=== PATIENT | male | born 1950 | race Caucasian/White ===

== ENCOUNTER 2023-02-01 06:11 | Day surgery (SDC) | payer MEDICARE, SELFPAY ==
[2023-02-01] MEDS: TETRACAINE 0.5% OPHTH 1 DROP EYE-RIGHT ×2 (06:55→07:08)
[2023-02-01 07:04] VITALS: BMI 32.3
[2023-02-01] MEDS: KETOROLAC OPHTH 0.5% 1 DROP EYE-RIGHT ×3 (07:05→07:19)
--- NOTE | 2023-02-01 07:09 | SUR.PREOP ---
The eye drops brought by the patient (Ketorolac and Prednisolone) are examined and I have determined they are labeled by the patient's pharmacy for this patient as prescribed by the surgeon. The bottles are intact, recently obtained and appear to be correct.
[2023-02-01 07:12] VITALS: BP 163/79; PULSE 76; RESP 20; TEMP 36.7; O2SAT 97
[2023-02-01] MEDS: SODIUM CHLORIDE 0.9 % (FLUSH) 10 ML SYRINGE IVF (07:26)
--- NOTE | 2023-02-01 07:45 | W.ANESCHARGE ---
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
[2023-02-01] MEDS: TETRACAINE 0.5% OPHTH 2 DROP EYE-RIGHT (08:35)
--- NOTE | 2023-02-01 08:41 | W.ANESCHARGE ---
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
[2023-02-01] MEDS: BALANCED SALT IRRIG SOLN 15 ML EYE-RIGHT (08:42)
[2023-02-01 09:15] VITALS: BP 145/82; PULSE 73; RESP 16; TEMP 36.1; O2SAT 95
--- NOTE | 2023-02-01 12:55 | W.PM.OPTPROC ---
Procedure Note Date of procedure: 02/01/23 Will [facility] bill your pro fee for this procedure?: Yes Procedure Description: SURGEON: Myranda Giron MD PREOPERATIVE DIAGNOSIS: Nuclear sclerotic cataract, right eye. POSTOPERATIVE DIAGNOSIS: Nuclear sclerotic cataract, right eye. NAME OF OPERATION: Phacoemulsification of cataract with posterior chamber intraocular lens implantation in the right eye. ANESTHESIA: Topical. ESTIMATED BLOOD LOSS: Less than 2 cc. COMPLICATIONS: None. PATHOLOGY SPECIMEN: None. INDICATIONS: See consult note for details. The risks, benefits and alternatives of the procedure were explained to the patient, who elected to proceed and signed informed consent to do so. PROCEDURE: The patient was brought to the pre-holding area where the right eye was identified as the operative eye. I placed my initials above this eye. The patient received eye drops consisting of 0.5% tetracaine, 1% tropicamide, 10% phenylephrine, and 0.5% ketorolac. The patient was then brought to the operating room where the right eye was again identified as the operative eye. The eye was prepped with Betadine and draped in the usual sterile ophthalmic fashion. A #15 super-sharp blade was used to create a paracentesis site. 1% non-preserved intracameral lidocaine was injected into the anterior chamber. Endocoat was injected into the anterior chamber. A 2.4 mm keratome was used to create a three-plane self-sealing incision 1 mm anterior to the temporal limbus. A cystotome was used to create an anterior capsular leaflet. The Utrata forceps were used to extend this to form a continuous curvilinear capsulorrhexis. Hydrodissection was performed. The cataract was removed with phacoemulsification using the [id number] technique. The irrigation and aspiration tip was used to remove the remaining cortex. Healon was injected into the capsular bag. An SUMIT ZCB00 intraocular lens of 18.0 diopters was injected into the capsular bag. The irrigation and aspiration tip was used to remove the remaining viscoelastic. Balanced salt solution on a cannula was used to hydrate the wound, and the wound was found to be watertight. The pupil was noted to be round. DISPOSITION: The patient was taken to the recovery room and discharged to home in stable condition. The patient was instructed to call me or go to the emergency department with any sudden change, including dramatic loss of vision, severe pain in the eye or eyebrow region, nausea, or vomiting. The patient will follow up in the clinic tomorrow morning. Surgeon: Myranda Giron MD
== END 2023-02-01 09:40 | disposition home or self-care (01) ==
PROVIDERS: PCP Family Medicine; Visit Provider Ophthalmology
PROC: (CPT 66982; principal; 2023-02-01 06:45)
DX: H25.11 Age-related nuclear cataract, right eye (principal); H57.03 Miosis
CPT/HCPCS: 66982; 00142; 82962; 99100; A9270; J2250; J3010; V2632

== ENCOUNTER 2023-02-22 06:32 | Day surgery (SDC) | payer MEDICARE, SELFPAY ==
[2023-02-22] MEDS: TETRACAINE 0.5% OPHTH 1 DROP EYE-LEFT ×2 (07:04→07:10)
[2023-02-22] MEDS: SODIUM CHLORIDE 0.9 % (FLUSH) 10 ML SYRINGE IVF (07:05)
[2023-02-22] MEDS: KETOROLAC OPHTH 0.5% 1 DROP EYE-LEFT ×3 (07:10→07:20)
[2023-02-22 07:13] VITALS: BP 168/73; PULSE 72; RESP 18; TEMP 36.6; O2SAT 97; BMI 31.4
--- NOTE | 2023-02-22 07:21 | SUR.PREOP ---
Patient provided home covid negative results to RN.
[2023-02-22] MEDS: TETRACAINE 0.5% OPHTH 2 DROP EYE-LEFT (08:00)
[2023-02-22] MEDS: BALANCED SALT IRRIG SOLN 15 ML EYE-LEFT (08:04)
--- NOTE | 2023-02-22 08:06 | W.ANESCHARGE ---
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
[2023-02-22 08:40] VITALS: BP 155/80; PULSE 70; RESP 18; TEMP 36.3; O2SAT 96
--- NOTE | 2023-02-22 09:06 | SUR.PHASEII ---
iv removed intact
--- NOTE | 2023-02-22 09:31 | P.OPTPRC_ITS ---
Procedure Note Date of procedure: 02/22/23 Will [facility] bill your pro fee for this procedure?: Yes Procedure Description: SURGEON: Myranda Giron MD PREOPERATIVE DIAGNOSIS: 1. Nuclear sclerotic cataract, left eye. 2. Miosis, left eye. POSTOPERATIVE DIAGNOSIS: 1. Nuclear sclerotic cataract, left eye. 2. Miosis, left eye. NAME OF OPERATION: Phacoemulsification of cataract with posterior chamber intraocular lens implantation in the left eye with pupilloplasty. ANESTHESIA: Topical. ESTIMATED BLOOD LOSS: Less than 2 cc. COMPLICATIONS: None. PATHOLOGY SPECIMEN: None. INDICATIONS: See consult note for details. The risks, benefits and alternatives of the procedure were explained to the patient, who elected to proceed and signed informed consent to do so. PROCEDURE: The patient was brought to the pre-holding area where the left eye was identified as the operative eye. I placed my initials above this eye. The patient received eye drops consisting of 0.5% tetracaine, 1% tropicamide, 10% phenylephrine, and 0.5% ketorolac. The patient was then brought to the operating room where the left eye was again identified as the operative eye. The eye was prepped with Betadine and draped in the usual sterile ophthalmic fashion. A #15 super-sharp blade was used to create a paracentesis site. 1% non-preserved intracameral lidocaine was injected into the anterior chamber. Endocoat was injected into the anterior chamber. A 2.4 mm keratome was used to create a three-plane self-sealing incision 1 mm anterior to the temporal limbus. A #15 super-sharp blade was used to create four additional paracentesis sites. Four Grieshaber iris hooks were placed in order to stretch the iris. A cystotome was used to create an anterior capsular leaflet. The Utrata forceps were used to extend this to form a continuous curvilinear capsulorrhexis. Hydrodissection was performed. The cataract was removed with phacoemulsification using the [id number] technique. The irrigation and aspiration tip was used to remove the remaining cortex. Healon was injected into the capsular bag. An SUMIT ZCB00 intraocular lens of 18.5 diopters was injected into the capsular bag. The four Grieshaber iris hooks were removed. The irrigation and aspiration tip was used to remove the remaining viscoelastic. Miostat was injected into the anterior chamber. Balanced salt solution on a cannula was used to hydrate the wound, and the wound was found to be watertight. The pupil was noted to be round. DISPOSITION: The patient was taken to the recovery room and discharged to home in stable condition. The patient was instructed to call me or go to the emergency department with any sudden change, including dramatic loss of vision, severe pain in the eye or eyebrow region, nausea, or vomiting. The patient will follow up in the clinic tomorrow morning.
== END 2023-02-22 09:10 | disposition home or self-care (01) ==
PROVIDERS: PCP Family Medicine; Visit Provider Ophthalmology
PROC: (CPT 66982; principal; 2023-02-22 06:45)
DX: H25.12 Age-related nuclear cataract, left eye (principal); H57.03 Miosis
CPT/HCPCS: 66982; 00142; 82962; 99100; A9270; J2250; J3010; V2632

== ENCOUNTER 2023-10-31 17:08 | Emergency (ER) | payer MEDICARE, SELFPAY ==
[2023-10-31 17:13] VITALS: BP 153/75; PULSE 73; RESP 18; TEMP 37.1; O2SAT 100; BMI 31.0
--- NOTE | 2023-10-31 17:26 | ED_ITS ---
HPI - General Adult General Chief complaint: Headache/Migraine Stated complaint: head pain, slurred speech Time Seen by Provider: 10/31/23 17:26 History of Present Illness HPI narrative: Patient reports jabbing sharp headache that started last night. He reports he was unable to sleep from this. Then around three PM he reports slurred speech. He does not know how long that lasted but did resolve fully. Still has headache 73-year-old man presenting to the emergency department with complaint of headache. Admittedly does not actually have a headache now. Sounds as though headache started yesterday evening in was unable to sleep from this. Has been feeling initially like pins and needles and more of a throbbing. Coming going over the course of the last day. About 2-1/2 hours prior to this interview he was reportedly in conversation with a fellow resident and had sometime of slurring of speech. The person he was speaking to did not mention it initially but apparently acknowledged this later. He himself realized that was slurring his speech and wonder what was going on. Other than the headache no symptoms. No visual disturbances. No sensory losses or weakness. No discoordination except then he mentions that has been dropping things sometimes he says particularly with his left hand. Underlying history of diabetes. Does not take aspirin. Related Data Home Medications Medication Instructions Recorded Confirmed atorvastatin 20 mg tablet 20 mg PO QPM 01/30/23 02/22/23 cholecalciferol (vitamin D3) 25 25 mcg PO DAILY 01/30/23 02/22/23 mcg (1,000 unit) capsule dulaglutide 3 mg/0.5 mL 3 mg subcut QWEEK 01/30/23 02/22/23 subcutaneous pen injector (Trulicity) hydrochlorothiazide 25 mg tablet 25 mg PO DAILY 01/30/23 02/22/23 lisinopril 40 mg tablet 40 mg PO DAILY 01/30/23 02/22/23 metformin 500 mg tablet 1,000 mg PO BID 01/30/23 02/22/23 tamsulosin 0.4 mg capsule 0.4 mg PO DAILY 01/30/23 02/22/23 Previous Rx's Medication Instructions Recorded aspirin 81 mg capsule 81 mg PO DAILY #30 caps 10/31/23 Allergies Allergy/AdvReac Type Severity Reaction Status Date / Time No Known Drug Allergies Allergy Verified 04/05/23 07:13 Review of Systems Status of ROS: Reports: 6 or more systems reviewed and unremarkable except as noted in History and below [facility] Medical History Uncontrolled type 2 diabetes mellitus with hyperglycemia ?E11.65 - Type 2 diabetes mellitus with hyperglycemia (ICD-10) Adjustment disorder with mixed anxiety and depressed mood ?F43.23 - Adjustment disorder with mixed anxiety and depressed mood (ICD-10) Vitamin D deficiency ?E55.9 - Vitamin D deficiency, unspecified (ICD-10) Major depressive disorder, 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 ?F32.5 - Major depressive disorder, single episode, in full remission (ICD- 10) Hypertension ?I10 - Essential (primary) hypertension (ICD-10) Surgical History Hx of wisdom tooth extraction ?K08.409 - Partial loss of teeth, unspecified cause, unspecified class (ICD- 10) Hx of colonoscopy ?Z98.890 - Other specified postprocedural states (ICD-10) Hx of appendectomy ?Z90.49 - Acquired absence of other specified parts of digestive tract (ICD- 10) Social History Smoking Status: Former smoker How often do you have a drink containing alcohol: 2-4 times a month AUDIT-C Alcohol total score: 2 Non-prescribed substance use: denies use Caffeine: No Exam Narrative: Exam Narrative: Seems a little annoyed in affect. Maybe a little hard of hearing. Skin is warm and dry. I do not see any blisters or rash in the area where he is having pain. No pulsatile fullness in the area of the sabianist. Neck is supple. Cranial nerves 2-12 intact. He has had lens implantation. Pupils are equal and brisk appropriately reactive. Extraocular movements are full. Lungs are clear. Heart in a regular rate and rhythm without murmur rub or gallop. Moving all extremities without difficulty. Well coordinated. No sensory deficits. Is well-perfused. Lungs are clear. Oropharynx unremarkable. Const: Vital Signs, click to edit/add: Vital Signs - 24 hr 10/31/23 17:13 10/31/23 18:04 10/31/23 18:28 Temperature 98.8 F Pulse Rate 83 Pulse Rate [Pulse Oximeter] 73 89 Respiratory Rate 18 20 Blood Pressure [Ri ght Upper Arm] 153/75 H 157/78 H Pulse Oximetry 100 95 96 Oxygen Delivery Me thod Room Air Room Air 10/31/23 19:00 10/31/23 20:31 Temperature Pulse Rate Pulse Rate [Pulse Oximeter] 81 71 Respiratory Rate 20 20 Blood Pressure [Ri ght Upper Arm] 144/67 H 157/76 H Pulse Oximetry 96 97 Oxygen Delivery Me thod Room Air Room Air Documenting provider has reviewed patient's vital signs: yes Course Vital Signs Vital signs: Initial Vital Signs Temperature 98.8 F 10/31/23 17:13 Temperature Source Temporal Artery Scan 10/31/23 17:13 Pulse Rate 73 10/31/23 17:13 Respiratory Rate 18 10/31/23 17:13 Blood Pressure 153/75 H 10/31/23 17:13 Blood Pressure Mean 101 10/31/23 17:13 Pulse Oximetry 100 10/31/23 17:13 Oxygen Delivery Method Room Air 10/31/23 17:13 Vital Signs Temperature 98.8 F 10/31/23 17:13 Pulse Rate 73 10/31/23 17:13 Respiratory Rate 18 10/31/23 17:13 Blood Pressure 153/75 H 10/31/23 17:13 Pulse Oximetry 100 10/31/23 17:13 Oxygen Delivery Method Room Air 10/31/23 17:13 Temperature 98.8 F 10/31/23 17:13 Pulse Rate 71 10/31/23 20:31 Respiratory Rate 20 10/31/23 20:31 Blood Pressure 157/76 H 10/31/23 20:31 Pulse Oximetry 97 10/31/23 20:31 Oxygen Delivery Method Room Air 10/31/23 20:31 Medications Administered Medications: Generic Name Dose Route Start Last Admin Trade Name Freq PRN Reason Stop Dose Admin Ketorolac Tromethamine 15 mg 10/31/23 20:39 10/31/23 21:05 Ketorolac 15 Mg/Ml Inj IVP 10/31/23 20:40 15 mg ONCE ONE Administration Discontinued Medications Generic Name Dose Route Start Last Admin Trade Name Freq PRN Reason Stop Dose Admin Sodium Chloride 1,000 mls @ 1,000 mls/hr 10/31/23 17:49 10/31/23 19:50 0.9 % Sodium Chloride 1000 Ml IV 10/31/23 18:48 Infused .Q1H ONE Infusion Medical Decision Making MDM Narrative Medical decision making narrative: Does not seem to need treatment for headache at this time. Given underlying history of diabetes I think it would be prudent to do a vascular study. Not able to do MRI at this time. It would seem that symptoms may have started over 24 hours ago now. Seems asymptomatic at this time. Chemistries could be playing a role in some of this. Perhaps this was a TIA. Does not appear to be an infectious process. Temporal arteritis seems less likely/given come and go nature and new onset. Have not sent for ESR. Initiating IV fluids. Will do CT head and CTA head and neck. Labs are overall reassuring. Urinalysis with some some red cells and white cells but negative nitrite and leukocyte esterase. No acute abnormality on CT head without contrast. Have been pending over-read of the vascular studies. With that in mind did call to Stroke Neuro who evaluated images noting them generally to be reassuring. There are no beds available for hospitalization and MRI regardless here or elsewhere as far as I can tell. Will give a full dose aspirin and then initiate daily 81 mg with close follow-up for MRI through primary care. Have treated headache with low-dose ketorolac. Did also receive a L fluids as noted. Otherwise asymptomatic during extended stay in the emergency department. Lab Data Lab results reviewed: Yes I reviewed the patient's lab results Labs: Lab Results 10/31/23 10/31/23 10/31/23 Range/Units 18:00 18:24 19:15 WBC 9.90 (4.50-11.00) K/uL RBC 4.72 (4.30-5.90) m/uL Hgb 14.4 (13.5-17.5) gm/dL Hct 41.8 (37.0-53.0) % MCV 89 (80-100) fL MCH 31 (26-34) pg MCHC 34 (32-36) gm/dL RDW Coeff of Julita 13.7 (11.5-15.5) % Plt Count 154 (140-440) K/uL Neut % (Auto) 72.1 H (42.0-72.0) % Lymph % (Auto) 19.2 L (20-44) % Montague % (Auto) 6.5 (0.0-11.0) % Eos % (Auto) 1.0 (0.0-7.0) % Baso % (Auto) 0.4 (0.0-3.0) % Neut # (Auto) 7.10 H (1.7-7.0) K/uL Lymph # (Auto) 1.90 (0.90-2.90) K/uL Montague # (Auto) 0.60 (0.00-0.90) K/UL Eos # (Auto) 0.10 (0.00-0.50) K/uL Baso # (Auto) 0.04 (0.00-0.30) K/uL Abs Immat Gran (auto) 0.08 (0.00-0.30) K/uL Imm/Tot Granulo (auto) 0.8 % INR 0.96 (0.91-1.10) APTT 33 (23-33) Seconds Sodium 135 (135-149) mmol/L Potassium 3.9 (3.6-5.1) mmol/L Chloride 101 (96-114) mmol/L Carbon Dioxide 23 (20-32) mmol/L Anion Gap 11 (7-15) mEq/L BUN 26 (7-30) mg/dL Creatinine 1.1 (0.5-1.5) mg/dL Estimated Creat Clear 59.81 Estimated GFR 71 ml/min Glucose 226 H (60-115) mg/dL Calcium 9.7 (8.4-10.6) mg/dL Urine Color Yellow (Yellow) Urine Appearance Clear (Clear) Urine pH 5.0 (5.0-8.5) Ur Specific Fowler 1.020 (1.000-1.030) Urine Protein 2+ A (Negative) Urine Glucose (UA) Trace A (Negative) Urine Ketones Negative (Negative) Urine Blood Trace-intact A (Negative) Urine Nitrite Negative (Negative) Urine Bilirubin Negative (Negative) Urine Urobilinogen 0.2 (0.2-1.0) Ur Leukocyte Esterase Negative (Negative) Urine RBC 5-10 A (0-2) Urine WBC 2-5 (0-5) Ur Squamous Epith Cells None (None-Few) Amorphous Sediment Few A (None) Urine Bacteria None (None) POC Creatinine 1.3 (0.6-1.3) mg/dl ECG Data Attestation: I personally reviewed and interpreted this ECG as follows: (PVC and right bundle-branch block. Rate of 86 sinus rhythm) Discharge Plan Discharge Clinical Impression: Dysarthria, Headache Patient Disposition: Home w/ Parent or Adult Condition: Improved Additional Instructions: Please call to your primary care provider to schedule follow-up as soon as possible. You probably do not have to be seen in clinic but we do not have an explanation for this episode of difficulty speaking you described. Neurology would like you to get an outpatient MRI of the brain this next week if possible. Your primary can order this. Would like you to start 81 mg of aspirin daily. Return for uncontrolled headache, new and focal weakness or persistent slurring of speech. Prescriptions: New aspirin 81 mg capsule 81 mg PO DAILY Qty: 30 1RF No Action atorvastatin 20 mg tablet 20 mg PO QPM cholecalciferol (vitamin D3) 25 mcg (1,000 unit) capsule 25 mcg PO DAILY Trulicity 3 mg/0.5 mL pen injector 3 mg subcut QWEEK metformin 500 mg tablet 1,000 mg PO BID hydrochlorothiazide 25 mg tablet 25 mg PO DAILY lisinopril 40 mg tablet 40 mg PO DAILY tamsulosin 0.4 mg capsule 0.4 mg PO DAILY Follow Up/Referrals: Michelle Go MD [Referring] - Stand Alone Forms: [facility] Info Instructions
--- NOTE | 2023-10-31 17:49 | CRLHL7_ITS ---
For Patients: As a result of the Century Cures Act, medical imaging exams and procedure reports are released immediately into your electronic medical record. You may view this report before your referring provider. If you have questions, please contact your health care provider. INDICATION: Acute stroke, slurred speech, intermittent headache. TECHNIQUE: CTA neck with contrast bolus tracking, 3D angiographic rendering using maximum intensity projection (MIP) and images permanently archived. FINDINGS: There is no significant carotid artery stenosis or dissection. There is no significant vertebral artery stenosis or dissection. The soft tissues of the neck are within normal limits. Degenerative changes are noted in the cervical spine. IMPRESSION: No significant carotid or vertebral artery stenosis or dissection. Please note that all CT scans at this facility use dose modulation, iterative reconstruction, and/or weight-based dosing when appropriate to reduce radiation dose to as low as reasonably achievable. Dictated by Gilberto Suarez MD @ 11/01/2023 7:56:37 AM (Electronically Signed)
--- NOTE | 2023-10-31 17:49 | CT_ITS ---
Patient: CRISTINA NIXON Facility:?[facility] Patient ID:?[id number] Site Patient ID:?[id number]. Site :?[id number] Study:?CT-Head Angio W/IV-10/31/2023 6:59:56 PM Ordering Physician:Abbey Navarro Final Report: INDICATION: Acute stroke, slurred speech, intermittent headache. TECHNIQUE: CTA head with contrast bolus tracking, 3D angiographic rendering using maximum intensity projection (MIP) and images permanently archived. FINDINGS: There is scattered intracranial atherosclerotic disease. There is normal opacification of the intracranial vasculature. There is no large vessel occlusion. No aneurysm is identified. IMPRESSION: No large vessel occlusion. Please note that all CT scans at this facility use dose modulation, iterative reconstruction, and/or weight-based dosing when appropriate to reduce radiation dose to as low as reasonably achievable. Dictated by Gilberto Suarez MD @ 11/01/2023 7:55:20 AM Signed by:?Gilberto Suarez MD @11/01/2023 7:55:20 AM (Electronic Signature)
--- NOTE | 2023-10-31 17:49 | CRLHL7_ITS ---
For Patients: As a result of the Century Cures Act, medical imaging exams and procedure reports are released immediately into your electronic medical record. You may view this report before your referring provider. If you have questions, please contact your health care provider. INDICATION: Slurred speech. TECHNIQUE: Noncontrast CT images acquired through the brain. COMPARISON: None. FINDINGS: Mild diffuse cerebral volume loss. No mass effect or midline shift. The mauro-white differentiation is maintained. No acute intracranial hemorrhage or pathologic extra-axial fluid collection. Atherosclerotic calcifications in the carotid siphons and left vertebral artery. Thinning of the ocular lenses. The calvarium is intact. The visualized paranasal sinuses and mastoid air cells are clear. IMPRESSION: No acute intracranial hemorrhage or mass effect. Please note that all CT scans at this facility use dose modulation, iterative reconstruction, and/or weight-based dosing when appropriate to reduce radiation dose to as low as reasonably achievable. Dictated by Chong Knox MD @ 10/31/2023 6:12:50 PM (Electronically Signed)
[2023-10-31 18:04] VITALS: BP 157/78; PULSE 89; RESP 20; O2SAT 95
[2023-10-31 18:28] VITALS: PULSE 83; O2SAT 96
[2023-10-31 18:30] LABS: Basophils Absolute Auto 0.04 K/uL (0.00-0.30); Basophils Percent Auto 0.4 % (0.0-3.0); Hematocrit 41.8 % (37.0-53.0); Hemoglobin* 14.4 gm/dL (13.5-17.5); Immature Granulocytes Abs Auto 0.08 K/uL (0.00-0.30); Immature Granulocytes Pct Auto 0.8 %; Lymphocytes Percent Auto 19.2 % (20-44); Mean Corpuscular HGB Conc 34 gm/dL (32-36); Mean Corpuscular Hemoglobin 31 pg (26-34); Mean Corpuscular Volume 89 fL (80-100); Monocytes Percent Auto 6.5 % (0.0-11.0); Neutrophils Percent Auto 72.1 % (42.0-72.0); Platelet Count* 154 K/uL (140-440); RDW Coefficient of Variation % 13.7 % (11.5-15.5); Red Blood Count 4.72 m/uL (4.30-5.90)
[2023-10-31] MEDS: 0.9 % SODIUM CHLORIDE 1000 ml 1,000 ML IV (18:34)
[2023-10-31 18:44] LABS: Creatinine, Point-of-Care* 1.3 mg/dl (0.6-1.3)
[2023-10-31 18:48] LABS: Chloride* 101 mmol/L (96-114); Potassium* 3.9 mmol/L (3.6-5.1); Slide Review Reflex No; Sodium* 135 mmol/L (135-149)
[2023-10-31 18:49] LABS: INR 0.96 (0.91-1.10); Prothrombin Time 13.4 Seconds
[2023-10-31 18:50] LABS: Creatinine* 1.1 mg/dL (0.5-1.5); Est. Creatinine Clearance* 59.81; Estimated Glomerular Filt Rate 71 ml/min; Partial Thromboplastin Time* 33 Seconds (23-33)
[2023-10-31 18:51] LABS: Anion Gap 11 mEq/L (7-15); Blood Urea Nitrogen* 26 mg/dL (7-30); Calcium* 9.7 mg/dL (8.4-10.6); Carbon Dioxide* 23 mmol/L (20-32); Glucose* 226 mg/dL (60-115)
[2023-10-31 19:00] VITALS: BP 144/67; PULSE 81; RESP 20; O2SAT 96
[2023-10-31 19:22] LABS: Appearance Urine Clear (Clear); Bilirubin Urine Negative (Negative); Blood Urine Trace-intact (Negative); Color Urine Yellow (Yellow); Glucose Urine Trace (Negative); Ketones Urine Negative (Negative); Leukocyte Esterase Urine Negative (Negative); Nitrite Urine Negative (Negative); Protein Urine 2+ (Negative); Urobilinogen Urine 0.2 (0.2-1.0)
[2023-10-31 19:41] LABS: Amorphous Sediment Urine Few
--- NOTE | 2023-10-31 19:53 | ED.NURSE ---
Arturo neuro paged for consult.
[2023-10-31 20:31] VITALS: BP 157/76; PULSE 71; RESP 20; O2SAT 97
[2023-10-31] MEDS: KETOROLAC 15 MG/ML inj IVP (21:05)
[2023-10-31] MEDS: ASPIRIN EC 325 MG TABLET PO (21:26)
--- NOTE | 2023-10-31 21:32 | ED.NURSE ---
Taxi voucher provided to patient for ride home. Pt in stable condition upon discharge. All belongings sent home with patient. All questions answered.
== END 2023-10-31 21:32 | disposition home or self-care (01) ==
PROVIDERS: Emergency Provider Family Medicine; PCP Student in an Organized Health Care Education/Training Program
DX: R51.9 Headache, unspecified (principal); R47.1 Dysarthria and anarthria
CPT/HCPCS: 36415; 70450; 70496; 70498; 80048; 81001; 82565; 85025; 85610; 85730; 93005; 94761; 96374; 99284; 99285; A9270; J1885; J7030; Q9967

== ENCOUNTER 2023-11-19 08:08 | Outpatient (CLI) | payer MEDICARE, SELFPAY | END 2023-11-19 08:09 | disposition home or self-care (01) | LOC: AMB 11-22 15:28 | PROVIDERS: PCP Student in an Organized Health Care Education/Training Program; Visit Provider Family Medicine | DX: R06.09 Other forms of dyspnea (principal); R05.9 Cough, unspecified | CPT/HCPCS: A0425; A0427 ==

== ENCOUNTER 2023-11-19 08:34 | Emergency (ER) | payer MEDICARE, SELFPAY ==
[2023-11-19 08:45] VITALS: BP 163/82; PULSE 71; RESP 22; TEMP 37.3; O2SAT 95; BMI 31.0
[2023-11-19 09:41] LABS: PCR FLU A Negative PCR FLU A (Negative); PCR FLU B Negative PCR FLU B (Negative); PCR RSV Negative PCR RSV (Negative)
[2023-11-19 09:43] LABS: SARS PCR* POSITIVE SARS-CoV-2 (Negative)
--- NOTE | 2023-11-19 09:44 | ED_ITS ---
HPI - General Adult General Time Seen by Provider: 09:44 Date Seen: 11/19/23 Chief complaint: Cough Stated complaint: Shortness of breath Time Seen by Provider: 11/19/23 09:44 Source: patient and RN notes reviewed Mode of arrival: ambulatory Limitations: no limitations History of Present Illness HPI narrative: Kings is a 73-year-old gentleman with past medical history of tobacco use, asthma and history of diabetes who comes to the emergency room for evaluation regarding a cough that is producing phlegm over the past 2 days. Patient notes that he was well until yesterday. He notes he is coughing and has phlegm but is unable to bring at of. He has not had fevers chills or any diarrhea. He denies chest pain or shortness of breath. Patient recently evaluated for possible stroke. States that his CT was normal and he has an outpatient MRI scheduled. This gentleman has no history of COVID, has not received any the vaccinations and expresses his distrust of the vaccinations stating that all of his friends were vaccinated got COVID. He would be willing to entertain treatment. Related Data Home Medications Medication Instructions Recorded Confirmed atorvastatin 20 mg tablet 20 mg PO QPM 01/30/23 11/19/23 cholecalciferol (vitamin D3) 25 25 mcg PO DAILY 01/30/23 11/19/23 mcg (1,000 unit) capsule dulaglutide 3 mg/0.5 mL 3 mg subcut QWEEK 01/30/23 11/19/23 subcutaneous pen injector (Trulicity) hydrochlorothiazide 25 mg tablet 25 mg PO DAILY 01/30/23 11/19/23 lisinopril 40 mg tablet 40 mg PO DAILY 01/30/23 11/19/23 metformin 500 mg tablet 1,000 mg PO BID 01/30/23 11/19/23 tamsulosin 0.4 mg capsule 0.4 mg PO DAILY 01/30/23 11/19/23 Previous Rx's Medication Instructions Recorded aspirin 81 mg capsule 81 mg PO DAILY #30 caps 10/31/23 nirmatrelvir 300 mg (150 mg See Rx Instructions PO .COMPLEX 11/19/23 x2)-ritonavir 100 mg tablet,dose #30 ea pack (Paxlovid) Allergies Allergy/AdvReac Type Severity Reaction Status Date / Time No Known Drug Allergies Allergy Verified 11/19/23 08:50 Review of Systems Status of ROS: Reports: 10 or more systems reviewed and unremarkable except as noted in History and below Const: Denies: fever, chills or fatigue Eyes: Denies: change in vision ENMT: Denies: throat pain, neck pain, difficulty swallowing, hoarseness, swelling of lips/tongue or ear pain Cardio: Denies: chest pain, palpitations, swelling of feet/ankles, lightheadedness or shortness of breath with exertion Resp: Reports: cough; Denies: shortness of breath or wheezing GI: Denies: abdominal pain, nausea, vomiting, diarrhea or difficulty swallowing Musculo: Denies: neck pain Neuro: Denies: headache Endo: Denies: fatigue Allergy/Immuno: Denies: wheezing PFSH PFSH Medical History Uncontrolled type 2 diabetes mellitus with hyperglycemia ?E11.65 - Type 2 diabetes mellitus with hyperglycemia (ICD-10) Adjustment disorder with mixed anxiety and depressed mood ?F43.23 - Adjustment disorder with mixed anxiety and depressed mood (ICD-10) Vitamin D deficiency ?E55.9 - Vitamin D deficiency, unspecified (ICD-10) Major depressive disorder, 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 ?F32.5 - Major depressive disorder, single episode, in full remission (ICD- 10) Hypertension ?I10 - Essential (primary) hypertension (ICD-10) Surgical History Hx of wisdom tooth extraction ?K08.409 - Partial loss of teeth, unspecified cause, unspecified class (ICD- 10) Hx of colonoscopy ?Z98.890 - Other specified postprocedural states (ICD-10) Hx of appendectomy ?Z90.49 - Acquired absence of other specified parts of digestive tract (ICD- 10) Social History Smoking Status: Former smoker How often do you have a drink containing alcohol: 2-4 times a month AUDIT-C Alcohol total score: 2 Non-prescribed substance use: denies use Caffeine: No Exam Narrative: Exam Narrative: Patient is alert and oriented. Nontoxic in appearance. Eyes are clear. Oral cavity with moist mucous membranes. Posterior oropharynx without erythema. Neck is supple without lymphadenopathy. Heart with regular rate and rhythm and lungs are clear although breath sounds are decreased bilaterally. Abdomen is soft nontender. Lower extremities without edema. Moving all extremities. Occasional cough is noted. Denies calf tenderness and no calf tenderness elicited on palpation Const: Vital Signs, click to edit/add: Vital Signs - 24 hr 11/19/23 08:45 11/19/23 10:00 11/19/23 10:30 Temperature 99.2 F Pulse Rate [Left P ulse Oximeter] 71 69 71 Respiratory Rate 22 16 Blood Pressure [Ri ght Upper Arm] 163/82 H 156/78 H 166/84 H Pulse Oximetry 95 93 93 Oxygen Delivery Me thod Room Air 11/19/23 11:00 11/19/23 11:30 Temperature Pulse Rate [Left P ulse Oximeter] 71 68 Respiratory Rate 18 18 Blood Pressure [Ri ght Upper Arm] 172/84 H 165/85 H Pulse Oximetry 95 97 Oxygen Delivery Me thod Documenting provider has reviewed patient's vital signs: yes Course Course ED Course: Differential diagnosis includes but is not limited to COVID/influenza/RSV, pneumonia, bronchitis. In spite of patient's miss trust of the vaccinations he is receptive to chest x-ray, some lab draws. At this time he has tested positive for COVID. This gentleman has not had COVID in the past nor is he immunized. Given history of diabetes, greater than the age of 65, history of obesity he does represent somebody at higher risk for disease progression to hospitalization and severe illness. Reevaluation(s) Reevaluation #1: Patient was somewhat receptive to the possibility of using Paxlovid. He stated he did not want to be ?a lab rat and ?. He states that all of his friends who received the vaccinations got COVID. I did try to impress upon him that the vaccination did protect against progression to serious disease but I do not think that he is receptive of this information. He then tells me that Meliton is a crook. If patient is receptive to Paxlovid, I did evaluate all of his medications and he would need to stop atorvastatin and Flomax at this time and then restart in 3 days after this last dose of Paxlovid. Currently awaiting labs and x-ray. Vital Signs Vital signs: Initial Vital Signs Temperature 99.2 F 11/19/23 08:45 Temperature Source Oral 11/19/23 08:45 Pulse Rate 71 11/19/23 08:45 Respiratory Rate 22 11/19/23 08:45 Respiratory Effort Normal 11/19/23 08:45 Respiratory Depth Normal 11/19/23 08:45 Respiratory Pattern Normal 11/19/23 08:45 Blood Pressure 163/82 H 11/19/23 08:45 Blood Pressure Mean 109 H 11/19/23 08:45 Blood Pressure Position Semi-Fowlers 11/19/23 08:45 Pulse Oximetry 95 11/19/23 08:45 Oxygen Delivery Method Room Air 11/19/23 08:45 Vital Signs Temperature 99.2 F 11/19/23 08:45 Pulse Rate 71 11/19/23 08:45 Respiratory Rate 22 11/19/23 08:45 Blood Pressure 163/82 H 11/19/23 08:45 Pulse Oximetry 95 11/19/23 08:45 Oxygen Delivery Method Room Air 11/19/23 08:45 Temperature 99.2 F 11/19/23 08:45 Pulse Rate 68 11/19/23 11:30 Respiratory Rate 18 11/19/23 11:30 Blood Pressure 165/85 H 11/19/23 11:30 Pulse Oximetry 97 11/19/23 11:30 Oxygen Delivery Method Room Air 11/19/23 08:45 Medical Decision Making MDM Narrative Medical decision making narrative: 1. COVID-patient has tested negative for COVID-19 and negative for influenza and RSV. patient has no evidence of hypoxia, chest pain, cardiac arrhythmia at this time. Chest x-ray without evidence of pneumonia. Laboratory values are reassuring at this time including normal white count. His symptoms started yesterday so he is an excellent candidate for the initiation of Paxlovid. Patient has not had COVID in the past to his knowledge and he notes that he did not receive any of the vaccinations and is fairly on trusting of medical kn owledge in this particular case. He was, however receptive to Paxlovid. I did state that all medicines have risksand we have to way but benefits and risks. GFR is such that he may have full dose of this medication. I spoke to him about potential interactions with his medications and he would need to abstain from atorvastatin and Flomax during the use of this medicine +3 days. He is in agreement to taking the medication. I did give him the information she provided by CDC as well. Asked him if he had any further questions and he states no. I did state to him that he is at increased risk for disease progression in spite of his minimizing of COVID during the beginning of his stay. The other option would be to watch and wait but I would advise against this given his risk factors. He would like to proceed with the antiviral Paxlovid. We also spoke about sleeping on his side or stomach and taking deep breaths. He may also want to buy a home oximetry kit. Should his O2 sats start dropping, he experienced chest pain, experience increasing shortness of breath would want him to return to the emergency room. Prescription sent to [facility]. If he has difficulty with insurance pain for this he is to let me know and we may have to have him go to a different pharmacy. 2. Diabetes-continue current medications. Glucose today 186. 3. Disposition-home at this time. Did state he will be contagious for at least the next 7 days. He will need to return to the emergency room for worsening symptoms. He does not need oxygen at this time but again is unvaccinated with no previous infections and has medical risk factors. He voices understanding. Medical Records Medical records reviewed: Yes I reviewed the patient's medical records Lab Data Lab results reviewed: Yes I reviewed the patient's lab results Labs: Lab Results 11/19/23 11/19/23 Range/Units 08:55 10:09 WBC 6.23 (4.50-11.00) K/uL RBC 4.26 L (4.30-5.90) m/uL Hgb 12.8 L (13.5-17.5) gm/dL Hct 37.5 (37.0-53.0) % MCV 88 (80-100) fL MCH 30 (26-34) pg MCHC 34 (32-36) gm/dL RDW Coeff of Julita 13.5 (11.5-15.5) % Plt Count 101 L (140-440) K/uL Neut % (Auto) 70.5 (42.0-72.0) % Lymph % (Auto) 16.2 L (20-44) % Bates % (Auto) 10.9 (0.0-11.0) % Eos % (Auto) 1.3 (0.0-7.0) % Baso % (Auto) 0.6 (0.0-3.0) % Neut # (Auto) 4.39 (1.7-7.0) K/uL Lymph # (Auto) 1.00 (0.90-2.90) K/uL Bates # (Auto) 0.70 (0.00-0.90) K/UL Eos # (Auto) 0.08 (0.00-0.50) K/uL Baso # (Auto) 0.04 (0.00-0.30) K/uL Abs Immat Gran (auto) 0.03 (0.00-0.30) K/uL Imm/Tot Granulo (auto) 0.5 % Sodium 136 (135-149) mmol/L Potassium 4.1 (3.6-5.1) mmol/L Chloride 105 (96-114) mmol/L Carbon Dioxide 23 (20-32) mmol/L Anion Gap 8 (7-15) mEq/L BUN 12 (7-30) mg/dL Creatinine 0.8 (0.5-1.5) mg/dL Estimated Creat Clear 65.79 Estimated GFR 93 ml/min Glucose 186 H (60-115) mg/dL Calcium 8.6 (8.4-10.6) mg/dL C-Reactive Protein 2.0 H (0.5-1.0) mg/dL SARS-CoV-2 (PCR) POSITIVE SARS-CoV-2 A (Negative) Influenza Type A (PCR) Negative PCR FLU A (Negative) Influenza Type B (PCR) Negative PCR FLU B (Negative) RSV (PCR) Negative PCR RSV (Negative) Imaging Data Chest x-ray: Attestation: I have reviewed the pertinent imaging results. My impression: No obvious infiltrates Radiologist's impression: The heart is normal in size. The pulmonary vasculature is within normal limits. Atherosclerotic calcification of the aortic arch. The lungs are clear. Bones are unremarkable. IMPRESSION: No acute process. Discharge Plan Discharge Clinical Impression: COVID Patient Disposition: Home, Self-Care Condition: Unchanged Additional Instructions: You have tested positive for COVID a viral illness that causes respiratory symptoms. You are at high I higher risk for disease progression to severe illness. This is because you are overweight, of older age, a diabetic, and possible because of a past medical history of tobacco use and asthma. I suggest we start you on an antiviral medicine called Paxlovid. This medication will sometimes interact with other medicines. I did a check on interactions and at this time you may continue all of your medications with the exception of atorvastatin and tamsulosin. Stop these medications now. You may restart them on November 26. Seek medical attention and return to the emergency room for worsening symptoms. If you have an oxygen monitor at home and your oxygen drops below 91 or you are having a hard time breathing or experiencing chest pain return to the emergency room. We have found that COVID tends to make the small air sacs in the lungs collapse. If you can concentrate on taking deep breaths during the day on top of the our it would help. Also lying flat on your back to sleep is the worst position for this particular illness. You will want to try to lay on your side or stomach if possible. You are contagious for the next 10 days. Prescriptions: New Paxlovid 300 mg (150 mg x 2)-100 mg tablets,dose pack See Rx Instructions .ROUTE .COMPLEX Qty: 30 0RF Rx Instructions: take TWO 150 mg tablets of nirmatrelvir with ONE 100 mg tablet of ritonavir twice daily for 5 days No Action atorvastatin 20 mg tablet 20 mg PO QPM cholecalciferol (vitamin D3) 25 mcg (1,000 unit) capsule 25 mcg PO DAILY Trulicity 3 mg/0.5 mL pen injector 3 mg subcut QWEEK metformin 500 mg tablet 1,000 mg PO BID hydrochlorothiazide 25 mg tablet 25 mg PO DAILY lisinopril 40 mg tablet 40 mg PO DAILY tamsulosin 0.4 mg capsule 0.4 mg PO DAILY aspirin 81 mg capsule 81 mg PO DAILY Qty: 30 1RF Follow Up/Referrals: Dalia Griffin PA-C [Primary Care Provider] - Stand Alone Forms: [employer] Info Instructions
[2023-11-19 10:00] VITALS: BP 156/78; PULSE 69; RESP 16; O2SAT 93
--- NOTE | 2023-11-19 10:00 | CRLHL7_ITS ---
For Patients: As a result of the Cures Act, medical imaging exams and procedure reports are released immediately into your electronic medical record. You may view this report before your referring provider. If you have questions, please contact your health care provider. INDICATION: Cough, COVID TECHNIQUE: Chest 1 view. COMPARISON: None. FINDINGS: The heart is normal in size. The pulmonary vasculature is within normal limits. Atherosclerotic calcification of the aortic arch. The lungs are clear. Bones are unremarkable. IMPRESSION: No acute process. Dictated by Janis Bourgeois MD @ 11/19/2023 11:30:53 AM Dictated by: Janis Bourgeois MD @ 11/19/2023 11:31:04 (Electronically Signed)
[2023-11-19 10:18] LABS: Basophils Absolute Auto 0.04 K/uL (0.00-0.30); Basophils Percent Auto 0.6 % (0.0-3.0); Eosinophils Absolute Auto 0.08 K/uL (0.00-0.50); Eosinophils Percent Auto 1.3 % (0.0-7.0); Hematocrit 37.5 % (37.0-53.0); Hemoglobin* 12.8 gm/dL (13.5-17.5); Immature Granulocytes Abs Auto 0.03 K/uL (0.00-0.30); Immature Granulocytes Pct Auto 0.5 %; Lymphocytes Percent Auto 16.2 % (20-44); Mean Corpuscular HGB Conc 34 gm/dL (32-36); Mean Corpuscular Hemoglobin 30 pg (26-34); Mean Corpuscular Volume 88 fL (80-100); Monocytes Percent Auto 10.9 % (0.0-11.0); Neutrophils Absolute Auto 4.39 K/uL (1.7-7.0); Neutrophils Percent Auto 70.5 % (42.0-72.0); Platelet Count* 101 K/uL (140-440); RDW Coefficient of Variation % 13.5 % (11.5-15.5); Red Blood Count 4.26 m/uL (4.30-5.90); White Blood Count* 6.23 K/uL (4.50-11.00)
[2023-11-19 10:23] LABS: Slide Review Reflex No
[2023-11-19 10:30] VITALS: BP 166/84; PULSE 71; O2SAT 93
[2023-11-19 10:31] LABS: Chloride* 105 mmol/L (96-114); Sodium* 136 mmol/L (135-149)
[2023-11-19 10:32] LABS: Potassium* 4.1 mmol/L (3.6-5.1)
[2023-11-19 10:34] LABS: Creatinine* 0.8 mg/dL (0.5-1.5); Est. Creatinine Clearance* 65.79; Estimated Glomerular Filt Rate 93 ml/min
[2023-11-19 10:35] LABS: Anion Gap 8 mEq/L (7-15); Blood Urea Nitrogen* 12 mg/dL (7-30); Calcium* 8.6 mg/dL (8.4-10.6); Carbon Dioxide* 23 mmol/L (20-32); Glucose* 186 mg/dL (60-115)
[2023-11-19 11:00] VITALS: BP 172/84; PULSE 71; RESP 18; O2SAT 95
[2023-11-19 11:30] VITALS: BP 165/85; PULSE 68; RESP 18; O2SAT 97
== END 2023-11-19 12:12 | disposition home or self-care (01) ==
PROVIDERS: Emergency Provider Family Medicine; PCP Student in an Organized Health Care Education/Training Program
DX: U07.1 COVID-19 (principal)
CPT/HCPCS: 36415; 71045; 80048; 85025; 86140; 87631; 99284